=== PATIENT | male | born 1995 | race African-American/Black ===

== ENCOUNTER 2017-07-12 19:27 | Emergency (ER) | payer SELFPAY ==
[~2017-07-12] VITALS: Ht 175.3 cm; Wt 70.0 kg
[2017-07-12 19:29] VITALS: BP 119/69; PULSE 86; RESP 16; TEMP 98.2; O2SAT 98
--- NOTE | 2017-07-12 19:54 | PD ---
HPI Chief Complaint: Skin Problem Time Seen by Provider: 19:46 Travel History International Travel<30 days: No Contact w/Intl Traveler<30days: No Traveled to known affect area: No History of Present Illness HPI Patient comes in complaining of a painful lump in his left axilla ongoing for 3 weeks. Patient reports he's had similar in the past in his right axilla that had to be I&D. Patient has been trying warm compresses, cold compresses, and just leaving it alone without improvement of symptoms. Pain is throbbing pressure-like in nature and radiates down his arm. Patient reports subjective fevers. Denies any injury, chest pain, shortness of breath, numbness or tingling anywhere, or other concerns. PFSH Past Medical History ADD: Yes ADHD: Yes Anxiety: Yes Depression: Yes Medical other: Yes (LEFT AXILLARY LUMP "LANCED BEFORE") Tetanus Vaccination: Unknown Influenza Vaccination: No Past Surgical History Surgical History: No Previous Surgery Social History Alcohol Use: No Tobacco Use: Yes Substance Use: No Allergies-Medications (Allergen,Severity, Reaction): Coded Allergies: No Known Allergies (Unverified , 07/12/17) Reported Meds & Prescriptions Reported Meds & Active Scripts Active Keflex (Cephalexin) 500 Mg Cap 500 Mg PO Q8H Bactrim DS (Sulfamethoxazole-Trimethoprim) 800-160 Mg Tab 1 Tab PO BID Review of Systems Except as stated in HPI: all other systems reviewed are Neg Physical Exam Narrative GENERAL: Well-developed, well nourished, in no acute distress, and non-ill appearing. SKIN: Focused skin assessment warm and dry. Small (less than 2 cm in greatest diameter) fluctuant abscess noted left axilla. His tender palpation. There is no significant surrounding cellulitis. There is no crepitus. HEAD: Atraumatic. Normocephalic. EYES: Pupils equal and round. EOMI. No scleral icterus. No injection or drainage. ENT: No nasal bleeding or discharge. Mucous membranes pink and moist. NECK: Trachea midline. Supple. No nuclear rigidity. RESPIRATORY: No accessory muscle use. No respiratory distress. MUSCULOSKELETAL: No obvious deformities. No clubbing. No cyanosis. No edema. Full range of motion. NEUROLOGICAL: Awake and alert. No obvious cranial nerve deficits. Motor grossly within normal limits. Normal speech. PSYCHIATRIC: Appropriate mood and affect; insight and judgment normal. Data Data Last Documented VS Vital Signs Date Time Temp Pulse Resp B/P (MAP) Pulse Ox O2 Delivery O2 Flow Rate FiO2 07/12/17 21:25 07/12/17 19:29 98.2 86 16 98 Orders Orders Lidocai-Epi 1%-1:100,000 Inj (Xylocaine- (07/12/17 20:00) Wound Culture And Gram Stain (07/12/17 19:52) Ed Discharge Order (07/12/17 21:12) MDM Medical Decision Making Medical Screen Exam Complete: Yes Emergency Medical Condition: Yes Differential Diagnosis Abscess, cellulitis, hidradenitis, folliculitis, gangrene Narrative Course The patient has no evidence of significant cellulitis. There is no evidence of necrotizing fasciitis/ [place] at this time. The patient will be discharged on antibiotics. The patient was given signs and symptoms warnings for worsening infection, such as spreading of redness, increasing pain, and/or swelling, associated heat, or fever or feels worse, and instructed to return immediately if these signs or symptoms worsen. The patient is to return in 2 days for recheck. Sooner if worsens or as needed. The patient agrees with plan. Patient in no obvious distress upon re-evaluation. Patient was asked if they wanted to speak to my attending, which the patient did not wish to do at this time. Any questions/concerns in reference to patient diagnosis/condition discussed and clarified prior to patient's discharge. Reinforced sheer importance of close follow up with patient's primary physician or primary care clinic. Instructed patient to return to ED immediately, if symptoms return/ worsen. Patient showed understanding of above instructions. Further instructions and recommendations were detailed in discharge paperwork. Patient ambulated without difficulty out of ED at discharge. Procedures Procedure Narrative INCISION AND DRAINAGE OF ABSCESS: Verbal consent was obtained. The area was prepped. A subcutaneous wheal of 1% Xylocaine with epi with a total number 2 mL was used to anesthetize the area. The area was properly anesthetized. A number 11 scalpel was used to make a 1-cm incision across the area of the abscess. The abscess was drained and irrigated with normal saline. Abscess is too small for packing. Sterile dressing applied by nurse. Patient tolerated procedure well. Patient advised to return here in 2 days to have packing removed and wound rechecked. Patient verbalized understanding. Diagnosis Primary Impression: Abscess Referrals: [facility] Patient Instructions: Abscess (GEN), Abscess Incision and Drainage (DC), General Instructions Additional Instructions: Follow-up with your primary care physician or return here in 2 days for recheck. Take all medication as prescribed. Apply warm compresses to affected area to facilitate continued drainage. Return to the emergency department if symptoms get worse. Med/Other Pt SpecificInfo: Prescription(s) given Scripts Cephalexin (Keflex) 500 Mg Cap 500 MG PO Q8H for Infection, #30 CAP 0 Refills Prov: Denzel Madden MD 07/12/17 Sulfamethoxazole-Trimethoprim (Bactrim DS) 800-160 Mg Tab 1 TAB PO BID for Infection, #20 TAB 0 Refills Prov: Denzel Madden MD 07/12/17 Disposition: 01 DISCHARGE HOME Condition: Stable Ron Preston Jul 12, 2017 19:54
[2017-07-12] MEDS ORDERED: LIDOCAINE 1%/EPINEPHrine 1:100,000 SOLN 20 ML VIAL INFIL ONE (20:00)
[2017-07-12] MEDS ORDERED: CEPH-460 PO ×2 (20:45→21:12)
[2017-07-12] MEDS ORDERED: BACT800T5 PO (21:12)
== END 2017-07-12 21:26 | disposition home or self-care (01) ==
LOC: NEPD 19:27
DX: L02.412 Cutaneous abscess of left axilla (principal); F90.9 Attention-deficit hyperactivity disorder, unspecified type; F41.9 Anxiety disorder, unspecified; F32.9 Major depressive disorder, single episode, unspecified; Z72.0 Tobacco use
CPT/HCPCS: 10060; 87070; 87205

== ENCOUNTER 2017-09-09 15:37 | Emergency (ER) | payer SELFPAY ==
[~2017-09-09] VITALS: Ht 172.7 cm; Wt 68.0 kg
[~2017-09-09 15:37] MED LIST: BACT800T5 PO; CEPH-460 PO
[2017-09-09 15:39] VITALS: BP 110/75; PULSE 69; RESP 18; TEMP 97.6; O2SAT 100
[2017-09-09] MEDS ORDERED: LIDOCAINE VISCOUS 2% SOLN 15 ML UDC PO ONE (17:15)
[2017-09-09] MEDS ORDERED: ONDANSETRON ODT 4 MG TAB PO ONE (17:15)
[2017-09-09] MEDS ORDERED: ALUMINUM/MAGNESIUM/SIMETH 30 ML CUP PO ONE (17:15)
--- NOTE | 2017-09-09 17:22 | PD ---
HPI Chief Complaint: Abdominal Pain Time Seen by Provider: 17:10 Travel History International Travel<30 days: No Contact w/Intl Traveler<30days: No Traveled to known affect area: No History of Present Illness HPI 22yo M with lactose intolerance presents to the ED with c/o nausea, nonbloody vomiting and nonbloody diarrhea for about 8 days. Also with some upper abdominal pain for 3-4 days. Said pain happens when he burps and during bowel movement and is intermittent. Denies any fever, chest pain, sob, dysuria, hematuria, testicular pain, penile discharge, penile rash. Pt took 1 motrin 3- 4 days ago. PFSH Past Medical History ADD: Yes ADHD: Yes Anxiety: Yes Depression: Yes Heart Rhythm Problems: Yes Past Surgical History Surgical History: No Previous Surgery Social History Alcohol Use: No Tobacco Use: Yes Substance Use: No Allergies-Medications (Allergen,Severity, Reaction): Coded Allergies: No Known Allergies (Unverified , 09/09/17) Reported Meds & Prescriptions Reported Meds & Active Scripts Active No Active Prescriptions or Reported Medications Review of Systems Except as stated in HPI: all other systems reviewed are Neg Physical Exam Narrative GENERAL: 22yo M not in distress. SKIN: Focused skin assessment warm/dry. HEAD: Atraumatic. Normocephalic. CARDIOVASCULAR: Regular rate and rhythm. No murmur appreciated. RESPIRATORY: No accessory muscle use. Clear to auscultation. Breath sounds equal bilaterally. GASTROINTESTINAL: Abdomen soft, non-tender, nondistended. No rebound tenderness or guarding. MUSCULOSKELETAL: No obvious deformities. No clubbing. No cyanosis. No edema. NEUROLOGICAL: Awake and alert. No obvious cranial nerve deficits. Motor grossly within normal limits. Normal speech. PSYCHIATRIC: Appropriate mood and affect; insight and judgment normal. Data Data Last Documented VS Vital Signs Date Time Temp Pulse Resp B/P (MAP) Pulse Ox O2 Delivery O2 Flow Rate FiO2 09/09/17 15:39 97.6 69 18 110/75 (87) 100 Orders Orders Complete Blood Count With Diff (09/09/17 16:03) Comprehensive Metabolic Panel (09/09/17 16:03) Lipase (09/09/17 16:03) Al-Mag Hy-Si 40-40-4 Mg/Ml Liq (Mag-Al P (09/09/17 17:15) Lidocaine 2% Viscous (Xylocaine 2% Visco (09/09/17 17:15) Ondansetron Odt (Zofran Odt) (09/09/17 17:15) Labs Laboratory Tests Test 09/09/17 16:46 White Blood Count 4.9 TH/MM3 Red Blood Count 4.64 MIL/MM3 Hemoglobin 14.2 GM/DL Hematocrit 41.3 % Mean Corpuscular Volume 89.0 FL Mean Corpuscular Hemoglobin 30.6 PG Mean Corpuscular Hemoglobin Concent 34.4 % Red Cell Distribution Width 13.7 % Platelet Count 229 TH/MM3 Mean Platelet Volume 8.2 FL Neutrophils (%) (Auto) 50.2 % Lymphocytes (%) (Auto) 37.4 % Monocytes (%) (Auto) 10.4 % Eosinophils (%) (Auto) 1.5 % Basophils (%) (Auto) 0.5 % Neutrophils # (Auto) 2.5 TH/MM3 Lymphocytes # (Auto) 1.8 TH/MM3 Monocytes # (Auto) 0.5 TH/MM3 Eosinophils # (Auto) 0.1 TH/MM3 Basophils # (Auto) 0.0 TH/MM3 CBC Comment DIFF FINAL Differential Comment Blood Urea Nitrogen 8 MG/DL Creatinine 0.87 MG/DL Random Glucose 76 MG/DL Total Protein 7.7 GM/DL Albumin 3.9 GM/DL Calcium Level 8.9 MG/DL Alkaline Phosphatase 66 U/L Aspartate Amino Transf (AST/SGOT) 18 U/L Alanine Aminotransferase (ALT/SGPT) 17 U/L Total Bilirubin 0.4 MG/DL Sodium Level 141 MEQ/L Potassium Level 3.9 MEQ/L Chloride Level 107 MEQ/L Carbon Dioxide Level 28.9 MEQ/L Anion Gap 5 MEQ/L Estimat Glomerular Filtration Rate 136 ML/MIN Lipase 178 U/L [facility] Medical Decision Making Medical Screen Exam Complete: Yes Emergency Medical Condition: Yes Differential Diagnosis Gastroenteritis vs. lactose intolerance vs. peptic ulcer disease vs. pancreatitis Narrative Course 22yo very well appearing male here with c/o vomiting and diarrhea for 8 days. Intermittent upper abdominal pain with burping and bowel movement. No tenderness on my exam. Labs were already drawn prior to my evaluation. Labs reviewed, no leukocytosis. CMP unremarkable. Lipase normal. Pt given GI cocktail and currently has no abdominal pain. Pt tolerating PO. Return precautions given. Diagnosis Primary Impression: Acute gastroenteritis Patient Instructions: General Instructions Departure Forms: Tests/Procedures, Work Release Enter return to work date: Sep 10, 2017 Additional Instructions: Please follow up with your primary care physician in 2-3 days. Return to the ED if symptoms worsen. Med/Other Pt SpecificInfo: No Change to Meds Scripts No Active Prescriptions or Reported Meds Disposition: 01 DISCHARGE HOME Condition: Stable NaomyLore Sep 09, 2017 17:22
[2017-09-09 17:49] LABS: AUTOMATED NEUTROPHIL # 2.5 TH/MM3 (1.8-7.7); BASOPHIL % 0.5 % (0.0-2.0); EOSINOPHIL # 0.1 TH/MM3 (0-0.4); EOSINOPHIL % 1.5 % (0.0-4.0); HEMATOCRIT 41.3 % (39.0-51.0); HEMOGLOBIN 14.2 GM/DL (13.0-17.0); LYMPH % 37.4 % (9.0-44.0); LYMPHOCYTE # 1.8 TH/MM3 (1.0-4.8); MEAN CORPUSCULAR HEMOGLOBIN 30.6 PG (27.0-34.0); MEAN CORPUSCULAR HGB CONC 34.4 % (32.0-36.0); MEAN PLATELET VOLUME 8.2 FL (7.0-11.0); MONO % 10.4 % (0.0-8.0); MONOCYTE # 0.5 TH/MM3 (0-0.9); NEUT % 50.2 % (16.0-70.0); PLATELET COUNT 229 TH/MM3 (150-450); RED BLOOD COUNT 4.64 MIL/MM3 (4.50-5.90); RED CELL DISTRIBUTION WIDTH 13.7 % (11.6-17.2); WHITE BLOOD COUNT 4.9 TH/MM3 (4.0-11.0)
[2017-09-09 18:15] LABS: ALBUMIN 3.9 GM/DL (3.4-5.0); AST (GOT) 18 U/L (15-39); BICARBONATE 28.9 MEQ/L (21.0-32.0); BLOOD UREA NITROGEN 8 MG/DL (7-18); CALCIUM 8.9 MG/DL (8.5-10.1); CHLORIDE 107 MEQ/L (98-107); CREATININE 0.87 MG/DL (0.60-1.30); GLOMERULAR FILTRATION RATE 136 ML/MIN (>89); GLUCOSE,RANDOM 76 MG/DL (74-106); LIPASE 178 U/L (73-393); SODIUM (NA) 141 MEQ/L (136-145)
[2017-09-09 18:19] LABS: ALKALINE PHOSPHATASE 66 U/L (45-117); ALT (GPT) 17 U/L (9-52); TOTAL BILIRUBIN ADULT 0.4 MG/DL (0.2-1.0); TOTAL PROTEIN 7.7 GM/DL (6.4-8.2)
== END 2017-09-09 18:47 | disposition short-term general hospital (02) ==
LOC: NEPD 15:37
DX: K52.9 Noninfective gastroenteritis and colitis, unspecified (principal); E73.9 Lactose intolerance, unspecified; Z72.0 Tobacco use
CPT/HCPCS: 80053; 83690; 85025; 99283

== ENCOUNTER 2017-10-07 21:51 | Emergency (ER) | payer SELFPAY ==
[2017-10-07 21:54] VITALS: BP 119/59; PULSE 67; RESP 16; TEMP 98.4; O2SAT 100
--- NOTE | 2017-10-07 22:32 | RADRPT ---
EXAM DATE/TIME: 10/07/2017 22:10 [facility] COMPARISON: No previous studies available for comparison. INDICATIONS : Right anterior ankle pain after falling from skateboard and feeling a pop. MEDICAL HISTORY : None. SURGICAL HISTORY : None. ENCOUNTER: Initial ACUITY: 1 day PAIN SCORE: 7/10 LOCATION: Right anterior ankle FINDINGS: Three view exam was performed of the right ankle. The bony structures are in normal alignment. No e vidence of fracture, dislocation, or soft tissue swelling. The ankle mortise is intact. No radiopaq ue foreign bodies are seen. Bony mineralization is normal. CONCLUSION: Unremarkable examination of the right ankle. Aclon Thakur MD on October 07, 2017 at 22:30 Board Certified Radiologist. This report was verified electronically.
[2017-10-07] MEDS ORDERED: DICL75TA PO (23:19)
--- NOTE | 2017-10-07 23:25 | PD ---
HPI Chief Complaint: Injury Time Seen by Provider: 23:11 Travel History International Travel<30 days: No Contact w/Intl Traveler<30days: No Traveled to known affect area: No History of Present Illness HPI 22-year-old black male presents emergency department with complaints of right ankle pain after twisting it skateboarding today. He states that he had fallen off the board twisting his ankle. He has had difficulty ambulating since then. Pain is mild. He denies any numbness, tingling or weakness. Symptoms are worse by ambulation. No alleviating symptoms. PFSH Past Medical History ADD: Yes ADHD: Yes Anxiety: Yes Depression: Yes Heart Rhythm Problems: Yes Social History Alcohol Use: No Tobacco Use: Yes Substance Use: No Allergies-Medications (Allergen,Severity, Reaction): Coded Allergies: No Known Allergies (Unverified , 09/09/17) Reported Meds & Prescriptions Reported Meds & Active Scripts Active Diclofenac Sodium DR (Diclofenac Sodium) 75 Mg Tabdr 75 Mg PO BID Review of Systems Except as stated in HPI: all other systems reviewed are Neg Physical Exam Narrative GENERAL: Well-developed, well-nourished in no acute distress. Nontoxic appearing. HEAD: Normocephalic, atraumatic. EYES: Pupils equal round and reactive. Extraocular motions intact. No scleral icterus. No injection or drainage. ENT: TMs clear without erythema. The external auditory canals clear. Nose: clear . Posterior pharynx is pink and moist. No tonsillar edema or exudate. Uvula midline. Airway patent. NECK: Trachea midline.Supple, nontender, moves head freely. No central bony tenderness or spasm. CARDIOVASCULAR: Regular rate and rhythm without murmurs, gallops, or rubs. RESPIRATORY: Clear to auscultation. Breath sounds equal bilaterally. No wheezes , rales, or rhonchi. GASTROINTESTINAL: Abdomen soft, non-tender, nondistended. No hepato-splenomegaly , or palpable masses. No guarding. EXTREMITIES: No clubbing, cyanosis, or edema. No joint tenderness, effusion, or edema noted. Examination of the right lower extremity reveals tenderness to the anterior talofibular ligament. There is no swelling. The skin is intact. No pain in the foot, heel, Achilles, medial or lateral malleolus. No pain in the knee or hip. He has intact sensation with good distal pulses. The left lower extremity as well as the upper extremities are without localizing bony tenderness or deformity. BACK: Nontender without deformity or crepitance. No flank tenderness. Data Data Last Documented VS Vital Signs Date Time Temp Pulse Resp B/P (MAP) Pulse Ox O2 Delivery O2 Flow Rate FiO2 10/07/17 21:54 98.4 67 16 119/59 (79) 100 Orders Orders Ankle, Complete ([id number]) (10/07/17 ) Ice/Cold Pack (10/07/17 23:17) Splint Or Brace Apply/Monitor (10/07/17 23:17) Crutches (10/07/17 23:17) Naproxen (Naprosyn) (10/07/17 23:30) Ed Discharge Order (10/07/17 23:20) MDM Medical Decision Making Medical Screen Exam Complete: Yes Emergency Medical Condition: Yes Medical Record Reviewed: Yes Interpretation(s) Last 24 hours Impressions Ankle X-Ray 10/07/17 0000 Signed Impressions: Service Date/Time: Saturday, October 07, 2017 22:10 - CONCLUSION: Unremarkable examination of the right ankle. Alcon Thakur MD Differential Diagnosis MDM: High Differential diagnoses: Fracture, sprain, strain, dislocation, contusion, neurovascular injury Narrative Course X-rays negative for bony injury. Patient given Farhan wrap, crutches, Naprosyn 500 mg p.o. for pain. This is a right ankle sprain Diagnosis Primary Impression: Right ankle sprain Qualified Codes: S93.491A - Sprain of other ligament of right ankle, initial encounter Patient Instructions: General Instructions Departure Forms: Tests/Procedures, Work Release Special Instructions: No work 3 days. Additional Instructions: Rest. Elevation. Ice packs for the next 3 days. Farhan wrap and crutches. No weight-bearing and then progress to weight-bearing as tolerated. Medications as directed Follow-up with an orthopedist or your doctor in one week. Return to the ER if any problems Med/Other Pt SpecificInfo: Prescription(s) given Scripts Diclofenac Sodium DR (Diclofenac Sodium DR) 75 Mg Tabdr 75 MG PO BID, #20 TAB 0 Refills Prov: Jose Roberto Carrillo MD 10/07/17 Disposition: 01 DISCHARGE HOME Condition: Stable Santosh Montalvo Oct 07, 2017 23:25
[2017-10-07] MEDS ORDERED: NAPROXEN 500 MG TAB PO ONE (23:30)
== END 2017-10-07 23:55 | disposition home or self-care (01) ==
LOC: NEPD 21:51
DX: S93.491A Sprain of other ligament of right ankle, initial encounter (principal); X50.1XXA Overexertion from prolonged static or awkward postures, initial encounter; Y93.51 Activity, roller skating (inline) and skateboarding; Z72.0 Tobacco use
CPT/HCPCS: 73610; 99283; E0113